=== PATIENT | female | born 1955 | race African-American/Black ===

== ENCOUNTER → 2017-03-23 | Day surgery (SDC) | payer OTHER ==
[~2017-03-23] MED LIST: BENZ1CAP34 PO; BUPIVACAINE HCL PF 0.5% 10 ML VIAL ONE; BUSP10TA8 PO; CLINDAMYCIN PHOS 900 MG/6 ML VIAL ONE; HYDRO25 PO; ISOSULFAN BLUE 50 MG/5 ML VIAL SQ ONE; KETOROLAC TROMETHAMINE 30 MG/ML (IVP) VIAL ONE; LACTATED RINGER'S 1,000 ML BAG IV ONE; LACTATED RINGER'S 1000 ML INJ 1,000 ML ONE; LEVO50TA51 PO; MEPERIDINE HCL 25 MG/ML VIAL ONE; MIDAZOLAM HCL 2 MG/2 ML VIAL ONE; NS 100 ML (PAB BAG) 100 ML IV ONE; ONDANSETRON HCL 4 MG/2 ML VIAL IV PUSH ONE; PRED20 PO; PROPOFOL 200 MG/20 ML AMP IV ONE; SODIUM CHLORIDE 0.9% INJ 10 ML ONE; SYMB160A INH; TYLE500T PO; XOPEAER4 INH
--- NOTE | 2017-03-23 14:54 | TN ---
cc: STEFANY OTERO M.D. DATE OF SURGERY: 03/23/2017 PRINCIPAL DIAGNOSIS Palpable right breast cancer. POSTOPERATIVE DIAGNOSIS Palpable right breast cancer. PROCEDURE PERFORMED Right breast lumpectomy and right axillary sentinel lymph node biopsy. SURGEON Stefany Otero MD ANESTHESIA General via LMA device. INDICATION The patient is a 61-year-old -[place] female who presented with a palpable right breast mass which is a biopsy proven invasive ductal carcinoma. She desires breast conservation and now presents for the procedure. Because the mass is palpable, no image guided localization was necessary. FINDINGS AT THE TIME OF SURGERY One sentinel lymph node was identified which was enlarged with a count of 265 and it was 2+ blue. No other palpable adenopathy was identified. The palpable mass was easily identified and oriented. PROCEDURE After informed consent was obtained and site verification was performed, the patient was brought to the major radiology suite where she underwent peritumoral radionuclide injection. She was then brought to the major operating room where she underwent general anesthesia via LMA device. A single dose of IV clindamycin was given due to PENICILLIN ALLERGY and sequential compression hose were placed. 4 ccs of half-strength Lymphazurin were injected in the subareolar right breast and a 5-minute massage was performed. The right breast and arm were then prepped and draped in sterile fashion. An incision was anesthetized at the inferior aspect of the right axillary hairline and both sharp and electrocautery dissection were performed until the clavipectoral fascia was divided and the level I axilla was entered. A mid level I lymph node was identified close to the chest wall which contained blue lymphatics and was also palpable and enlarged. This was circumferentially dissected free from surrounding structures using the harmonic scalpel and the count was 265. No other count was identified in the axilla and there was no other palpable adenopathy or blue lymphatics. Some adjacent axillary tissue was dissected free from surrounding structures using the harmonic scalpel and this was sent as a permanent specimen. Good hemostasis was noted and the wound was closed using interrupted 3-0 Vicryl subcutaneous sutures and 4-0 Monocryl subcuticular suture. Steri-Strips and a sterile dressing were applied. Attention was then turned to the right breast where a palpable 1-1/2 cm mass was identified between 8 and 9 o'clock 5 cm from the nipple. The mass was demarcated on the skin and a radial incision was anesthetized at 9 o'clock. Sharp and electrocautery dissection was then performed circumferentially around the mass and the specimen was oriented with two sutures anteriorly, one short suture superiorly, and one long suture laterally. An approximately 3-1/2-cm specimen was removed but the anterior inferior margin and lateral margin appeared close and each of these margins was excised separately with a stitch on the new margin and they were sent as permanent specimens. The posterior margin was also sharply reexcised with a stitch on the new margin. Hemostasis was easily obtained with electrocautery and the wound was closed using interrupted 3-0 Vicryl subcutaneous sutures and a 4-0 Monocryl subcuticular suture. Steri-Strips and sterile dressing were applied. The patient tolerated the procedure well with an estimated blood loss of 50 ccs and she was extubated in the operating room and brought to recovery room in good condition. All sponge and needle counts were correct at the conclusion of the case. MD BRIANNA Kelly/GREG /2:25 PM /2:39 PM
--- NOTE | 2017-04-21 16:07 | MH ---
cc: STEFANY OTERO M.D. DATE OF ADMISSION 03/23/2017 ATTENDING PHYSICIAN Stefany Otero MD HISTORY OF PRESENT ILLNESS The patient is a 61-year-old -[place] female status post a right breast needle-localized lumpectomy and sentinel lymph node biopsy on February for clinical stage II right breast cancer. She has had neuropathic symptoms in her right shoulder and right breast which has not responded well to narcotic analgesics. Final pathology demonstrated a 5 mm deposit of metastatic carcinoma in one sentinel lymph node and a 2.5 cm infiltrating lobular carcinoma which was well-differentiated but multifocal. The invasive component extended to the medial and anterior resection margins. Pathologically, she had a T2 N1A stage II breast cancer. The tumor was ER 73%, AL 20%, and HER2/prakash negative. I have recommended re-excision of the anterior and medial lumpectomy margins and we also discussed mastectomy but the patient declined this. A medical oncology referral as well as a Genomic assay with OncoType was recommended to make further plans about the role of adjuvant chemotherapy. PAST MEDICAL HISTORY Significant for hypothyroidism and mild reactive airway disease. She also has hyperlipidemia. PAST SURGERIES Included arthroscopy, laparoscopic cholecystectomy, shoulder surgery, and total abdominal hysterectomy as well as the recent right breast lumpectomy. CURRENT MEDICATIONS 1. Albuterol inhaler four times a day p.r.n. 2. Alprazolam 0.25 milligrams daily p.r.n. 3. Buspirone 10 milligrams twice daily. 4. Cymbalta 30 milligrams extended release daily. 5. Levothyroxine 75 micrograms daily. 6. Ventolin inhaler p.r.n. 7. She also takes vitamin D 2000 units 2 tablets daily. ALLERGIES SHE IS ALLERGIC TO BARBITURATES, CODEINE DERIVATIVES, OXYCONTIN, AMOXICILLIN AND SULFA. REVIEW OF SYSTEMS 12-point review of systems was otherwise noncontributory. PHYSICAL EXAMINATION GENERAL: She is alert and oriented x3 and in no acute distress. She was 5 foot 6 and weighed 169 pounds with a BMI at 27.3. VITAL SIGNS: Blood pressure 126/89, temperature 97.5, heart rate 84, respirations 17. HEENT: Exam was unremarkable and the neck was supple with no adenopathy or thyromegaly. CHEST: Chest was clear throughout. CARDIOVASCULAR: Exam revealed a normal S1 and S2 with no murmurs, rubs or gallops. BREASTS: Exam revealed induration and a healing periareolar scar in the 9 o'clock location as well as an axillary scar. ABDOMEN: The abdomen was soft and nontender with normal bowel sounds. The remainder of her exam was unremarkable. IMPRESSION Ms. Iglesias has stage II right breast cancer and will require re-excision of the anterior and medial margins. Depending on recommendations from medical oncology and the results of her OncoType testing, there may also be a role for port placement to facilitate adjuvant chemotherapy. MD BRIANNA Kelly/SHAHRIAR /3:40 PM /3:56 PM
== END | disposition home or self-care (01) ==
LOC: ESDC 08:47
PROVIDERS: ATTEND Surgery
DX: C50.911 Malignant neoplasm of unspecified site of right female breast (principal)
CPT/HCPCS: 00400; 01610; 19301; 38525; 38792; 88307; J1885; J2175; J2250; J2405; J3010; J7120; Q9968

== ENCOUNTER → 2017-05-06 | Day surgery (SDC) | payer OTHER ==
[~2017-05-06] MED LIST changes: -BUPIVACAINE HCL PF 0.5% 10 ML VIAL ONE; +BUPIVACAINE/EPINEPHRINE 0.5% PF 10 ML VIAL ONE; +EPINEPHrine HCL (1:1000) 1 MG/ML VIAL OTHER ONE; +HEPARIN SODIUM - IV 10,000 UNITS/10 ML VIAL ONE; -ISOSULFAN BLUE 50 MG/5 ML VIAL SQ ONE; +KETOROLAC TROMETHAMINE 30 MG/ML (IVP) VIAL IV PUSH ONE; -KETOROLAC TROMETHAMINE 30 MG/ML (IVP) VIAL ONE; -LACTATED RINGER'S 1,000 ML BAG IV ONE; -MEPERIDINE HCL 25 MG/ML VIAL ONE; -NS 100 ML (PAB BAG) 100 ML IV ONE; +SODIUM CHLORIDE 0.9% SOLN 100 ML BAG IV ONE
--- NOTE | 2017-05-06 13:07 | TN ---
cc: STEFANY OTERO DATE OF SURGERY 05/06/2017 PRINCIPAL DIAGNOSIS Right breast cancer PROCEDURE PERFORMED Left subclavian Iwzhem-[id number] placement. SURGEON Stefany Otero MD ANESTHESIA TIVA INDICATION The patient is a 61-year-old female with a stage II right breast cancer involving one sentinel lymph node. She will require adjuvant chemotherapy and now presents for port placement to facilitate this. FINDINGS AT THE TIME OF SURGERY Normal subclavian anatomy was identified. PROCEDURE PERFORMED After informed consent was obtained and site verification was performed, the patient was brought to the major operating room where she was given IV sedation. The right and left chest and neck were prepped and draped in a sterile fashion and she was placed in Trendelenburg. She was given a single dose of IV clindamycin due to penicillin allergy and sequential compression hose were placed. The left subclavian vein was accessed via percutaneous cannulation and a J-wire advanced easily into the central circulation where its position was confirmed with fluoroscopy. Local analgesia was then applied around the wire and both sharp and electrocautery dissection were performed until a subcutaneous pocket had been created for the reservoir. A peel-away sheath and introducer were then advanced over the wire using fluoroscopy and the introducer and wire were removed. The catheter was cut off at 25 cm and advanced easily through the peel-away sheath where there was good position of the catheter tip in the superior vena cava at 18 cm. The catheter was cut off at that point and secured to the reservoir which was noted to flush and aspirate easily. The reservoir was secured to the chest wall with two 2-0 Prolene sutures and good hemostasis was noted. The wound was closed using interrupted 3-0 Vicryl subcutaneous sutures and a 4-0 Monocryl subcuticular suture. Steri-Strips and sterile dressing were applied. The patient tolerated the procedure well with minimal blood loss and she was extubated in the operating room and brought to recovery room in good condition. All sponge and needle counts were correct at the conclusion of the case. MD BRIANNA Kelly/ERROL /12:54 PM /1:03 PM
--- NOTE | 2017-05-06 14:50 | RADRPT ---
EXAM DATE/TIME: 05/06/2017 12:21 [place] COMPARISON: No previous studies available for comparison. INDICATIONS : Infusaport placement left chest. FLUORO TIME: .5 minutes IMAGE COUNT: 1 MEDICAL HISTORY : None. SURGICAL HISTORY : None. ENCOUNTER: Initial ACUITY: 1 day PAIN SCORE: Non-responsive. LOCATION: Left Chest. FINDINGS: Intraoperative examination demonstrates tip of the [id number] overlapping the SVC. CONCLUSION: Intraoperative examination. Adelso Otoole MD on May 06, 2017 at 14:48 Board Certified Radiologist. This report was verified electronically.
== END | disposition home or self-care (01) ==
LOC: ESDC 10:04
PROVIDERS: ATTEND Surgery
DX: C50.911 Malignant neoplasm of unspecified site of right female breast (principal)
CPT/HCPCS: 00532; 36561; 76000; C1788; J0171; J1644; J1885; J2250; J2405; J3010; J7120

== ENCOUNTER 2017-10-28 07:56 | Observation (INO) | payer OTHER ==
--- NOTE | 2017-10-17 08:00 | MH ---
cc: STEFANY OTERO [facility] #[id number] DATE OF ADMISSION: 10/28/2017 PRINCIPAL DIAGNOSIS Stage II lobular cancer of the right breast. ATTENDING PHYSICIAN Stefany Otero MD HISTORY OF PRESENT ILLNESS The patient is a 61-year-old -[place] female status post a right breast needle-localized lumpectomy and sentinel node biopsy on March 23, 2017 for a Stage II invasive lobular carcinoma. The tumor was multifocal and 2.5 cm in size and involved the medial and anterior margins. There was a 5 mm deposit of metastatic carcinoma in one sentinel node. She completed adjuvant Adriamycin and Cytoxan and was taking Taxol but had debilitating neuropathy and can no longer tolerate treatment. Her symptoms have improved slightly with Gabapentin, amitriptyline and B vitamin supplements. She currently takes anastrozole. The patient has opted for bilateral mastectomy and reconstruction as well as right axillary dissection and she will also require post-mastectomy radiation for her axillary disease. She now presents for the procedure. PAST MEDICAL HISTORY Medical history is significant for - 1. Hypothyroidism. 2. Mild reactive airway disease. 3. Hyperlipidemia. 4. Stage II lobular breast cancer. PRIOR SURGERIES 1. Arthroscopy. 2. Laparoscopic cholecystectomy. 3. Shoulder surgery. 4. Total abdominal hysterectomy. 5. The recent lumpectomy and sentinel node biopsy. CURRENT MEDICATIONS 1. Albuterol inhalers four times a day p.r.n. 2. Alprazolam 0.25 mg daily p.r.n. 3. Buspirone 10 mg b.i.d. 4. Cymbalta 30 mg extended release daily. 5. Levothyroxine 75 mcg daily. 6. Ventolin inhaler p.r.n. 7. Vitamin D 50,000 units twice a day. 8. Gabapentin 100 mg b.i.d. 9. Amitriptyline 25 mg q.h.s. 10. Anastrozole 1 mg daily. ALLERGIES She has an adverse drug reaction to CODEINE DERIVATIVES AND OXYCONTIN. ALLERGIC TO BARBITURATES. AMOXICILLIN. SULFA. REVIEW OF SYSTEMS A 12-point review of systems was significant for gastroesophageal reflux and dysphasia after eating and drinking involving the mid-chest. Musculoskeletal symptoms were significant for limb pain in the right arm and also numbness and bilateral hand and foot neuropathy. PHYSICAL EXAMINATION VITAL SIGNS: She is 5 feet, 6 inches and weighed 157 pounds with a BMI of 25. Blood pressure 133/88, temperature 97, heart rate 107, respirations 18. HEENT: Exam was unremarkable, although she did have an upper and lower partial bridge. NECK: The neck was supple with no adenopathy or thyromegaly. CHEST: Clear throughout. CARDIAC: Exam was unremarkable. BREASTS: Exam revealed an area of induration in the lower outer right breast with a well-healed right axillary and 9 o'clock periareolar scar. ABDOMINAL EXAM: Significant for well-healed port and hysterectomy scars. The remainder of her exam was unremarkable. IMPRESSION Ms. Iglesias has Stage II lobular carcinoma with positive margins and has opted for bilateral mastectomy with immediate reconstruction. She will also require a right axillary dissection. She has now completed adjuvant chemotherapy and we will proceed with surgery in the near future. She understands the risks and benefits of the procedure and has agreed to proceed. MD BRIANNA Kelly/ALEXANDRE /1:37 PM /7:44 AM
[~2017-10-28] VITALS: Ht 165.1 cm; Wt 72.0 kg
[~2017-10-28 07:56] MED LIST changes: +ALPR0.25 PO; +AMIT25TA9 PO; +ANAS1TAB PO; -BENZ1CAP34 PO; +BENZ1CAP54 PO; -BUPIVACAINE/EPINEPHRINE 0.5% PF 10 ML VIAL ONE; +BUSP10TA PO; -BUSP10TA8 PO; +CHOL1CAP34 PO; -CLINDAMYCIN PHOS 900 MG/6 ML VIAL ONE; +CYMB30CA PO; -EPINEPHrine HCL (1:1000) 1 MG/ML VIAL OTHER ONE; +GABA100C4 PO; -HEPARIN SODIUM - IV 10,000 UNITS/10 ML VIAL ONE; -HYDRO25 PO; -KETOROLAC TROMETHAMINE 30 MG/ML (IVP) VIAL IV PUSH ONE; -LACTATED RINGER'S 1000 ML INJ 1,000 ML ONE; -LEVO50TA51 PO; +LEVO75TA3 PO; +MAPA500T13 PO; -MIDAZOLAM HCL 2 MG/2 ML VIAL ONE; -ONDANSETRON HCL 4 MG/2 ML VIAL IV PUSH ONE; -PROPOFOL 200 MG/20 ML AMP IV ONE; -SODIUM CHLORIDE 0.9% INJ 10 ML ONE; -SODIUM CHLORIDE 0.9% SOLN 100 ML BAG IV ONE; -TYLE500T PO; +VENTAER INH; +VIST25CA PO
[2017-10-28] MEDS ORDERED: LACTATED RINGER'S 1000 ML IV PRN (08:30)
[2017-10-28] MEDS ORDERED: SODIUM CHLORID 0.9% 500 ML IV PRN (08:30)
[2017-10-28] MEDS ORDERED: CLINDAMYCIN 900/NS 100 ML IV SCH ×2 (08:30)
[2017-10-28] MEDS ORDERED: CHLORHEXIDINE GLUCONATE 2 % 1 PACK (2 CLOTHS) TOPICAL PRN (08:30)
[2017-10-28] MEDS ORDERED: METOPROLOL TARTRATE 25 MG TAB PO PRN (08:30)
[2017-10-28] MEDS ORDERED: POVIDONE IODINE 5% (ANTISEPSIS KIT) 4 APPLICATIONS EACH NARE PRN (08:30)
[2017-10-28] MEDS ORDERED: ceFAZolin 2 GM PREMIX 50 ML ONE (08:48)
[2017-10-28] MEDS ORDERED: CLINDAMYCIN 900 MG/DEX PREMIX 50 ML ONE (08:49)
[2017-10-28] MEDS ORDERED: MIDAZOLAM HCL 2 MG/2 ML VIAL ONE (09:12)
[2017-10-28] MEDS ORDERED: diphenhydrAMINE HCL 50 MG/ML VIAL ONE (09:50)
[2017-10-28] MEDS ORDERED: ACETAMINOPHEN 1000 MG/100 ML 100 ML IV ONE (10:00)
[2017-10-28] MEDS ORDERED: BUPIVACAINE HCL PF 0.25% 30 ML VIAL ONE (10:35)
[2017-10-28] MEDS ORDERED: BUPIVACAINE/EPINEPHRINE 0.5% PF 10 ML VIAL ONE (12:18)
[2017-10-28] MEDS ORDERED: NALOXONE HCL 0.4 MG/ML AMP ONE (14:21)
[2017-10-28 14:40] VITALS: PULSE 107
[2017-10-28] MEDS ORDERED: *MEPERIDINE 25 MG INJ VIAL PERIprocedural Use ONLY ONE (14:50)
[2017-10-28] MEDS ORDERED: KETOROLAC TROMETHAMINE 30 MG/ML (IVP) VIAL ONE (14:51)
--- NOTE | 2017-10-28 15:03 | MP ---
cc: STEFANY OTERO DATE OF SURGERY 10/28/2017 PREOPERATIVE DIAGNOSIS Right breast cancer stage II, with positive margins and positive sentinel node. POSTOPERATIVE DIAGNOSIS Right breast cancer stage II, with positive margins and positive sentinel node. PROCEDURE PERFORMED 1. Bilateral mastectomy. 2. Right axillary dissection. 3. Left subclavian [id number]-G-Nlrt removal. SURGEON Stefany Otero. ANESTHESIA General via LMA device. INDICATION The patient is a 61-year-old -[place] female who had a right breast lumpectomy and sentinel lymph node biopsy for invasive lobular carcinoma in February 2017. Final pathology demonstrated multifocal disease with positive margins and a positive sentinel node. She subsequently completed adjuvant chemotherapy and has opted for bilateral mastectomy as well as right axillary dissection. FINDINGS At the time of surgery no pathologic adenopathy was identified in the right axilla. The right breast was moderately indurated but there was no gross evidence of residual disease. PROCEDURE After informed consent was obtained and site verification was performed, the patient was brought to the major operating room where she underwent general anesthesia via an LMA device. She was given a single dose of IV Ancef and sequential compression hose were placed. Both breasts as well as the right arm were then prepped and draped in sterile fashion. 200 cc of tumescent solution was injected circumferentially around the right breast in the plane between the subcutaneous fat and anterior breast fascia. Sharp dissection was performed in the same plane superiorly to the clavicle, medially to the parasternal area, inferiorly to the anterior rectus sheath, and laterally to the axilla. The breast was then dissected off the pectoralis muscle using electrocautery and it was amputated in the axillary tail. The specimen was oriented with the skin anterior, one short suture superiorly, and one long suture laterally and the breast was then sent for permanent pathologic evaluation. The clavipectoral fascia was divided and the level I axilla was immediately identified. The level I contents were dissected free from the latissimus muscle laterally, the axillary vein superiorly, and the chest wall medially, and the thoracodorsal and long thoracic neurovascular bundles remained intact throughout the dissection. The dissection was performed using the Harmonic scalpel and the contents were sent for pathologic evaluation. Good hemostasis was noted. A stab wound was created and a 10 Citizen Of [place] Anthony drain was placed along the chest wall and secured to the skin with a 3-0 nylon suture. The wound was then closed using interrupted 3-0 Vicryl subcutaneous sutures and a 4-0 Monocryl subcuticular suture. Steri-Strips and sterile dressings were applied. Attention was then turned to the left subclavian port. The port site was anesthetized with Marcaine and incised sharply. Further sharp dissection was performed until the PowerPort had been delivered via the capsule into the wound and the stitch securing the port to the chest wall was divided. The catheter was easily withdrawn with no resistance for a total catheter distance of 18 cm. Direct pressure was held at the subclavian puncture site and good hemostasis was noted. The wound was closed using interrupted 3-0 Vicryl subcutaneous sutures and a 4-0 Monocryl subcuticular suture. Attention was then turned to the left breast where an elliptical classic incision was anesthetized and further tumescent solution mixed with 0.5% Marcaine with epinephrine was then infiltrated circumferentially around the breast in the plane between the subcutaneous fat and anterior breast fascia utilizing a total of 170 cc. Sharp dissection was performed in the same plane superiorly to the clavicle, medially to the parasternal area, laterally to the axilla and inferiorly to the anterior rectus sheath. Electrocautery was then used to dissect the breast off the pectoralis muscle and it was again amputated in the axilla. The breast was oriented with the skin anterior, one long suture medially, and one short suture inferiorly. Hemostasis was easily obtained with electrocautery and the specimen was sent for permanent pathologic evaluation. A stab wound was created and a 10 Citizen [place] Anthony drain was placed along the left chest wall and it was secured to the skin with a 3-0 nylon suture. The wound was then closed using interrupted 3-0 Vicryl subcutaneous sutures and a 4-0 Monocryl subcuticular suture. Steri-Strips and sterile dressings were applied. The patient tolerated the procedure well with an estimated blood loss of 300 cc. She was extubated in the operating room and brought to the recovery room in good condition. All sponge and needle counts were correct at the conclusion of the case. MD BRIANNA Kelly/SID /2:26 PM /2:36 PM
[2017-10-28] MEDS ORDERED: MORPHINE SULFATE 8 MG/ML INJ ONE (15:22)
[2017-10-28] MEDS ORDERED: ONDANSETRON HCL 4 MG/2 ML VIAL IV PUSH PRN (15:30)
[2017-10-28] MEDS ORDERED: ALBUTEROL SULFATE 90 MCG/ACT HFA 8 GM INHALER INH PRN (15:30)
[2017-10-28] MEDS ORDERED: KETOROLAC TROMETHAMINE 10 MG TAB PO PRN (15:30)
[2017-10-28 16:30] VITALS: PULSE 97
[2017-10-28 17:00] VITALS: BP 115/82; PULSE 88; RESP 12; TEMP 96.2; O2SAT 100
[2017-10-28] MEDS ORDERED: PILL SPLITTER OTHER PRN (17:15)
[2017-10-28 19:10] VITALS: O2SAT 99
[2017-10-28 20:33] VITALS: BP 108/78; PULSE 69; RESP 18; TEMP 97.6; O2SAT 100
[2017-10-28] MEDS ORDERED: AMITRIPTYLINE HCL 25 MG TAB PO SCH (21:00)
[2017-10-29 01:12] VITALS: BP 116/61; PULSE 82; RESP 16; TEMP 98; O2SAT 100
[2017-10-29] MEDS: MORPHINE SULFATE 2 MG/ML INJ IV PRN ×2 (05:50→09:22)
[2017-10-29] MEDS ORDERED: LEVOTHYROXINE SODIUM 75 MCG TAB PO SCH (06:00)
[2017-10-29 08:39] VITALS: O2SAT 98
[2017-10-29 08:55] VITALS: BP 114/85; PULSE 91; RESP 16; TEMP 98.6; O2SAT 97
[2017-10-29] MEDS ORDERED: ANASTROZOLE 1 MG TAB PO SCH (09:00)
[2017-10-29] MEDS ORDERED: diphenhydrAMINE HCL 25 MG CAP PO PRN (09:00)
[2017-10-29 09:27] VITALS: RESP 17
--- NOTE | 2017-10-29 09:49 | HHI.DS ---
Discharge Summary Admission Date Oct 28, 2017 at 16:56 Admitting Diagnosis Pt Condition on Discharge: Good Discharge Disposition: Discharge Home Discharge Instructions DIET: Follow Instructions for: As Tolerated, No Restrictions Activities you can perform: Shower Only-No Bath Activities to Avoid: Bathing Stefany Barba MD Oct 29, 2017 09:48
[2017-10-29 10:42] VITALS: O2SAT 100
== END 2017-10-29 13:24 | disposition home or self-care (01) ==
LOC: PHSDC 07:56 → PH3A 16:56
PROVIDERS: ADMIT Surgery; ATTEND Surgery
DX: C50.811 Malignant neoplasm of overlapping sites of right female breast (principal); C77.3 Secondary and unspecified malignant neoplasm of axilla and upper limb lymph nodes; Z17.0 Estrogen receptor positive status [ER+]; Z40.01 Encounter for prophylactic removal of breast; E03.9 Hypothyroidism, unspecified; E78.5 Hyperlipidemia, unspecified; G62.9 Polyneuropathy, unspecified; J45.909 Unspecified asthma, uncomplicated; Z79.811 Long term (current) use of aromatase inhibitors; Z90.710 Acquired absence of both cervix and uterus
CPT/HCPCS: 00404; 19307; 36590; 88307; 88309; 94150; 96374; 96375; 96376; G0378; J0131; J0690; J1885; J2175; J2250; J2270; J2310; J2405; J7120; J1200